=== PATIENT | male | born 2000 | race Caucasian/White ===

== ENCOUNTER 2019-07-13 08:07 | Emergency (ER) | payer OTHER ==
[2019-07-13 08:59] LABS: ADD MAN DIFF? NO
[2019-07-13] MEDS: SOD CHLORIDE 0.9% 1,000 ML IV (09:01)
[2019-07-13] MEDS: LORAZEPAM 2 MG INJ IV (09:02)
[2019-07-13] MEDS: ONDANSETRON 4 MG INJ IV (09:02)
[2019-07-13 09:03] LABS: BASOPHILS % 0.2 % (0.0-2.0); EOSINOPHILS % 0.3 % (0.0-7.0); HEMATOCRIT 45.5 % (42.0-52.0); HEMOGLOBIN 15.2 g/dl (14.0-18.0); LYMPHOCYTES # 0.8 10^3/ul (0.8-2.9); LYMPHOCYTES % 9.3 % (18.0-55.0); MEAN CORPUSCULAR HEMOGLOBIN 31.5 pg (29.0-33.0); MEAN CORPUSCULAR HGB CONC 33.4 g/dl (32.0-37.0); MEAN CORPUSCULAR VOLUME 94.2 fl (72.0-104.0); MEAN PLATELET VOLUME 9.8 fl (7.4-10.4); MONOCYTE # 0.2 10^3/ul (0.3-0.9); MONOCYTES % 2.7 % (0.0-13.0); NEUTROPHIL # 7.6 10^3/ul (1.6-7.5); NEUTROPHILS % 87.2 % (30.0-74.0); PLATELET COUNT 245 10^3/UL (140-415); RED BLOOD COUNT 4.83 10^6/ul (4.70-6.10); RED CELL DISTRIBUTION WIDTH 12.4 % (11.5-14.5)
[2019-07-13 09:03] LABS: WHITE BLOOD COUNT 8.8 10^3/ul (4.8-10.8)
[2019-07-13 09:28] LABS: ALANINE AMINOTRANSFERASE 43 IU/L (13-69); ALBUMIN 4.5 g/dl (3.3-4.9); ALBUMIN/GLOBULIN RATIO 1.21; ALKALINE PHOSPHATASE 139 IU/L (42-121); ANION GAP 10 (5-13); ASPARTATE AMINO TRANSFERASE 44 IU/L (15-46); BILIRUBIN,INDIRECT 0.7 mg/dl (0-1.1); BILIRUBIN,TOTAL 0.7 mg/dl (0.2-1.3); BLOOD UREA NITROGEN 10 mg/dl (7-20); CALCIUM 9.5 mg/dl (8.4-10.2); CARBON DIOXIDE 23 mmol/L (21-31); CHLORIDE 104 mmol/L (97-110); CREATININE 0.74 mg/dl (0.61-1.24); Estimated GFR > 60 mL/min (>60); GLUCOSE 116 mg/dl (70-220); POTASSIUM 3.3 mmol/L (3.5-5.1); SODIUM 137 mmol/L (135-144); TOTAL PROTEIN 8.2 g/dl (6.1-8.1)
== END 2019-07-13 10:19 | disposition home or self-care (01) ==
LOC: FTE 08:07
DX: F16.90 Hallucinogen use, unspecified, uncomplicated (principal)
CPT/HCPCS: 36415; 80053; 85025; 96374; 96375; 99284-25